=== PATIENT | male | born 1950 | race Hispanic/Latino ===

== ENCOUNTER 2023-05-22 21:25 | Emergency (ER) | payer OTHER, MEDICARE, BC ==
[2023-05-22] MEDS ORDERED: tiZANidine HCl 4 MG TAB PO SCH (23:15)
== END 2023-05-22 23:25 | disposition home or self-care (01) ==
LOC: CSHERS 21:25
DX: S16.1XXA Strain of muscle, fascia and tendon at neck level, initial encounter (principal); N18.9 Chronic kidney disease, unspecified; V89.2XXA Person injured in unspecified motor-vehicle accident, traffic, initial encounter
CPT/HCPCS: 70450; 72125